=== PATIENT | female | born 1975 | race Caucasian/White ===

== ENCOUNTER 2023-02-26 01:34 | Emergency (ER) | payer SELFPAY ==
[~2023-02-26] VITALS: Ht 167.6 cm; Wt 79.0 kg
[2023-02-26] MEDS ORDERED: FAMOTIDINE 20MG/2ML VIAL IV ONE (02:15)
[2023-02-26] MEDS ORDERED: DIPHENHYDRAMINE 50MG/ML VIAL IV ONE (02:15)
[2023-02-26] MEDS ORDERED: METHYLPREDNISOLONE SOD SUCC 125 MG/2 ML VIAL IV ONE (02:15)
[2023-02-26] MEDS ORDERED: EPINEPHRINE 1:1000 1 MG/ML AMP IM ONE (02:15)
[2023-02-26 03:07] LABS: BASOPHILS % 0.2 % (0.0-2.0); EOSINOPHILS % 0.5 % (0.0-5.0); HEMATOCRIT. 44.5 % (36.0-48.0); HEMOGLOBIN. 15.5 g/dL (12.0-16.0); LYMPHOCYTES % 16.8 % (20.0-50.0); MEAN CORPUSCULAR VOLUME 86.2 fL (81.0-99.0); MEAN PLATELET VOLUME 8.8 fl (7.4-10.4); MONOCYTES % 3.2 % (2.0-8.0); NEUTROPHILS % 79.3 % (40.0-76.0); PLATELET 340 x1000/uL (130-400); RED BLOOD CELL COUNT 5.16 mill/uL (4.2-5.4); RED CELL DISTRIBUTION WIDTH 14.6 % (11.6-14.6)
[2023-02-26 03:09] LABS: CHLORIDE 105 mEq/L (98-107)
[2023-02-26 03:26] LABS: HCG SCREEN NEGATIVE
[2023-02-26] MEDS ORDERED: EPIN0.3P3 IM (05:43)
[2023-02-26] MEDS ORDERED: CETI10CA11 MT (05:44)
[2023-02-26 05:45] VITALS: BP 113/72
== END 2023-02-26 06:03 | disposition home or self-care (01) ==
LOC: ER 01:34
DX: T78.40XA Allergy, unspecified, initial encounter (principal); X58.XXXA Exposure to other specified factors, initial encounter; E11.9 Type 2 diabetes mellitus without complications; E78.00 Pure hypercholesterolemia, unspecified; I10 Essential (primary) hypertension
CPT/HCPCS: 36415; 80053; 84703; 85025; 96372; 96374; 96375; 99284; J1200; J2930; J3490; Z7610